=== PATIENT | female | born 1960 | race Caucasian/White ===

== ENCOUNTER 2021-12-26 18:50 | Emergency (ER) | payer OTHER ==
[2021-12-26 20:15] LABS: Urine Blood Negative (Negative); Urine Glucose Negative (Negative); Urine Protein Negative (Negative); Urine Specific Gravity 1.025 (1.005-1.030)
[2021-12-26] MEDS ORDERED: HYDROMORPHONE HCL 1 MG/ML INJ ONE (20:44)
[2021-12-26] MEDS ORDERED: DIAZEPAM 5 MG TABLET ONE (20:44)
[2021-12-26] MEDS ORDERED: KETOROLAC 30 MG/ML INJ ONE (20:44)
[2021-12-26] MEDS ORDERED: ONDANSETRON 4 MG (ODT) TAB ONE (20:44)
--- NOTE | 2021-12-26 21:41 | ER ---
Nurse's Notes [facility] Name: Magali Anderson Age: 61 yrs Sex: Female : 1960 Arrival Date: 12/26/2021 Time: 18:53 Bed 12 Private MD: Diagnosis: Lumbago with sciatica, right side Presentation: 12/26 19:39 Chief complaint: Patient states: I was lifting boxes and I think I pulled a muscle in jb4 my lower back on the right side. Coronavirus screen: At this time, the client does not indicate any symptoms associated with coronavirus-19. Ebola Screen: No symptoms or risks identified at this time. Initial Sepsis Screen: Does the patient meet any 2 criteria? No. Patient's initial sepsis screen is negative. Does the patient have a suspected source of infection? No. Patient's initial sepsis screen is negative. Risk Assessment: Do you want to hurt yourself or someone else? Patient reports no desire to harm self or others. Onset of symptoms was December 26, 2021. Transition of care: patient was not received from another setting of care. 19:39 Method Of Arrival: Ambulatory jb4 19:39 Acuity: WESLEY 4 jb4 Historical: - Allergies: 19:41 Codeine (Hives); jb4 - Home Meds: 19:41 levothyroxine oral [Active]; jb4 - PMHx: 19:41 Mitral valve prolapse; HTN; Hypothyroidism; jb4 - PSHx: 19:41 Tubal; breast; jb4 - Immunization history:: Adult Immunizations up to date. - Social history:: Smoking status: Patient denies any tobacco usage or history of. Patient/guardian denies using alcohol, street drugs. Screenin:58 Abuse screen: Denies threats or abuse. Denies injuries from another. Nutritional lp1 screening: No deficits noted. Tuberculosis screening: No symptoms or risk factors identified. Fall Risk None identified. Assessment: 20:30 General: Appears uncomfortable, Behavior is restless. Pain: Complains of pain in right lp1 lower back and right gluteus alexi Pain currently is 10 out of 10 on a pain scale. Noted to be grimacing, moaning, restless. Neuro: Level of Consciousness is awake, alert, obeys commands. Cardiovascular: Patient's skin is warm and dry. Respiratory: Respiratory effort is even, unlabored. GI: Reports nausea. : No signs and/or symptoms were reported regarding the genitourinary system. EENT: No signs and/or symptoms were reported regarding the EENT system. Derm: Skin is pink, warm \T\ dry. Musculoskeletal: Circulation, motion, and sensation intact. 20:58 Reassessment: Patient given sandwich and water per request. lp1 21:49 Reassessment: Patient appears in no apparent distress at this time. Patient and/or jb4 family updated on plan of care and expected duration. Pain level reassessed. Patient is alert, oriented x 3, equal unlabored respirations, skin warm/dry/pink. Patient states feeling better. Vital Signs: 19:39 BP 158 / 78; Pulse 56; Resp 16; Temp 97.6(TE); Pulse Ox 99% on R/A; Weight 61.23 kg jb4 (R); Height 5 ft. 3 in. (160.02 cm) (R); Pain 10/10; 19:39 Body Mass Index 23.91 (61.23 kg, 160.02 cm) jb4 ED Course: 18:53 Patient arrived in ED. ja2 19:41 Triage completed. jb4 19:41 Arm band placed on right wrist. jb4 20:06 Grant Bowser PA is PHCP. [facility] 20:06 Vu De La Torre MD is Attending Physician. [facility] 20:59 Patient has correct armband on for positive identification. lp1 21:49 Riley Monet, LIZZY is Primary Nurse. jb4 21:49 No provider procedures requiring assistance completed. IV discontinued, intact, jb4 bleeding controlled, No redness/swelling at site. Pressure dressing applied. Administered Medications: 20:45 Drug: Dilaudid (HYDROmorphone) 1 mg Route: IM; Site: right gluteus; lp1 21:50 Follow up: Response: No adverse reaction; Marked relief of symptoms jb4 20:45 Drug: Ketorolac 30 mg Route: IM; Site: right gluteus; lp1 21:50 Follow up: Response: No adverse reaction; Marked relief of symptoms jb4 20:45 Drug: Valium (diazepam) 5 mg Route: PO; lp1 21:50 Follow up: Response: No adverse reaction; Marked relief of symptoms jb4 20:45 Drug: Ondansetron 4 mg Route: PO; lp1 21:50 Follow up: Response: No adverse reaction; Marked relief of symptoms jb4 Medication: 20:58 VIS not applicable for this client. lp1 Outcome: 21:41 Discharge ordered by . jose alfredo 21:49 Discharged to home ambulatory, with family. jb4 21:49 Condition: stable 21:49 Discharge instructions given to patient, Instructed on discharge instructions, follow up and referral plans. medication usage, Demonstrated understanding of instructions, follow-up care, medications, Prescriptions given X 3. 21:50 Patient left the ED. jb4 Signatures: Grant Bowser PA PA jmm Pena, Laura RN RN lp1 Riley Monet RN RN jb4 [place] Corrections: (The following items were deleted from the chart) 19:43 19:41 Allergies: No Known Allergies; jb4 jb4
--- NOTE | 2021-12-26 21:41 | EDPHYS ---
Physician Documentation [facility] Name: Magali Anderson Age: 61 yrs Sex: Female : 1960 Arrival Date: 12/26/2021 Time: 18:53 Bed 12 Private MD: ED Physician Vu De La Torre HPI: 12/26 18:56 This 61 yrs old Female presents to ER via Ambulatory with complaints of Back Pain. jmm 18:56 The patient presents with pain that is acute. Onset: The symptoms/episode jmm began/occurred 2 day(s) ago. The pain radiates to the right leg. Associated signs and symptoms: Pertinent negatives: abdominal pain, chest pain, constipation, dysuria, fever, headache, hematuria, incontinence, nausea, tingling, urinary retention, vomiting, weakness. The problem was sustained when lifting boxes, heavy object. Symptoms began after the patient was performing heavy lifting for moving. States the pain radiates down her right leg. Symptoms have occurred once in the past. Denies any bowel or bladder issues. Historical: - Allergies: 19:41 Codeine (Hives); jb4 - Home Meds: 19:41 levothyroxine oral [Active]; jb4 - PMHx: 19:41 Mitral valve prolapse; HTN; Hypothyroidism; jb4 - PSHx: 19:41 Tubal; breast; jb4 - Immunization history:: Adult Immunizations up to date. - Social history:: Smoking status: Patient denies any tobacco usage or history of. Patient/guardian denies using alcohol, street drugs. ROS: 18:56 Constitutional: Negative for fever, chills, and weight loss, Cardiovascular: Negative jmm for chest pain, palpitations, and edema, Respiratory: Negative for shortness of breath, cough, wheezing, and pleuritic chest pain. 18:56 Back: Positive for pain with movement. 18:56 All other systems are negative. Exam: 18:56 Constitutional: This is a well developed, well nourished patient who is awake, alert, jmm and in no acute distress. Head/Face: atraumatic. Eyes: EOMI, no conjunctival erythema appreciated ENT: Moist Mucus Membranes Neck: Trachea midline, Supple Chest/axilla: Normal chest wall appearance and motion. Cardiovascular: Regular rate and rhythm. No edema appreciated Respiratory: Normal respirations, no respiratory distress appreciated Abdomen/GI: Non distended, soft 18:56 Skin: General appearance color normal 18:56 Back: pain, that is moderate, of the right mid back and right low back. 18:56 Musculoskeletal/extremity: ROM: intact in all extremities. 18:56 Skin: Appearance: Color: normal in color. 18:56 Neuro: Orientation: is normal, Mentation: is normal, Memory: is normal. 18:56 Psych: Behavior/mood is pleasant, cooperative. Vital Signs: 19:39 BP 158 / 78; Pulse 56; Resp 16; Temp 97.6(TE); Pulse Ox 99% on R/A; Weight 61.23 kg jb4 (R); Height 5 ft. 3 in. (160.02 cm) (R); Pain 10/10; 19:39 Body Mass Index 23.91 (61.23 kg, 160.02 cm) jb4 MDM: 20:11 Patient medically screened. jose alfredo 21:40 Data reviewed: vital signs, nurses notes. Counseling: I had a detailed discussion with jose alfredo the patient and/or guardian regarding: the historical points, exam findings, and any diagnostic results supporting the discharge/admit diagnosis, the need for outpatient follow up, to return to the emergency department if symptoms worsen or persist or if there are any questions or concerns that arise at home. 05 20:16 Order name: Urine Dipstick-Ancillary; Complete Time: 20:18 EDMS 05 18:56 Order name: Urine Dipstick-Ancillary (obtain specimen); Complete Time: 20:31 ms3 Administered Medications: 20:45 Drug: Dilaudid (HYDROmorphone) 1 mg Route: IM; Site: right gluteus; lp1 21:50 Follow up: Response: No adverse reaction; Marked relief of symptoms jb4 20:45 Drug: Ketorolac 30 mg Route: IM; Site: right gluteus; lp1 21:50 Follow up: Response: No adverse reaction; Marked relief of symptoms jb4 20:45 Drug: Valium (diazepam) 5 mg Route: PO; lp1 21:50 Follow up: Response: No adverse reaction; Marked relief of symptoms jb4 20:45 Drug: Ondansetron 4 mg Route: PO; lp1 21:50 Follow up: Response: No adverse reaction; Marked relief of symptoms jb4 Disposition Summary: 12/26/21 21:41 Discharge Ordered Location: Home [facility] Condition: Stable [facility] Diagnosis - Lumbago with sciatica, right side jm Followup: [facility] - With: Private Physician - When: 2 - 3 days - Reason: Recheck today's complaints, Continuance of care, Re-evaluation by your physician Discharge Instructions: - Discharge Summary Sheet [facility] - Sciatica Rehab-[facility] Forms: - Medication Reconciliation Form [facility] - Thank You Letter [facility] - Antibiotic Education [facility] - Prescription Opioid Use [facility] Prescriptions: - Prednisone 20 mg Oral Tablet - take 3 tablets by ORAL route once daily for 5 days; 15 tablet; Refills: 0, [facility] Product Selection Permitted - Zanaflex 4 mg Oral Tablet - take 1 tablet by ORAL route every 8 hours As needed; 20 tablet; Refills: 0, [facility] Product Selection Permitted - Diclofenac Sodium 75 mg Oral Tablet Sustained Release - take 1 tablet by ORAL route 2 times per day; 30 tablet; Refills: 0, Product [facility] Selection Permitted Addendum: 12/29/2021 02:06 Co-signature as Attending Physician, Vu De La Torre MD. [facility] Signatures: Dispatcher [employer] EDGrant Feldman PA PA m Jeannette Hanna RN RN lp1 Riley Monet RN RN jb4 Ha Morocho DO DO ms3 Vu De La Torre MD MD [id number] Corrections: (The following items were deleted from the chart) 12/26 19:43 19:41 Allergies: No Known Allergies; jb4 jb4
[2021-12-26 22:26] VITALS: BP 158/78; TEMP 97.6; O2SAT 99
== END 2021-12-26 21:50 | disposition home or self-care (01) ==
LOC: ER 18:50
DX: M54.41 Lumbago with sciatica, right side (principal); E03.9 Hypothyroidism, unspecified; I10 Essential (primary) hypertension; Z88.5 Allergy status to narcotic agent
CPT/HCPCS: 81003; 96372; 99283; J1170